=== PATIENT | male | born 1980 | race African-American/Black ===

== ENCOUNTER 2018-02-18 01:46 | Emergency (ER) | payer SELFPAY ==
[~2018-02-18] VITALS: Ht 170.2 cm; Wt 86.2 kg
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
[2018-02-18] MEDS ORDERED: MORPHINE SULFATE INJ 2 MG/ML DISP.SYRIN IM ONE (02:30)
--- NOTE | 2018-02-18 02:30 | NUR ---
XRAY AT BEDSIDE.
[2018-02-18] MEDS ORDERED: MORPHINE SULFATE INJ 4 MG/ML DISP.SYRIN ONE (02:32)
--- NOTE | 2018-02-18 03:00 | NUR ---
AT BEDSIDE, SPLINT PLACED ON R 5TH FINGER BY .
--- NOTE | 2018-02-18 03:28 | NUR ---
Patient discharged with family to home in stable condition. Written and verbal after care instructions given, patient instructed not to drive. Patient verbalizes understanding of instruction. Patient ambulatory with a steady gait. Patient is awake and alert to self, day, and place.
[2018-02-18 03:36] VITALS: BP 138/84
== END 2018-02-18 03:37 | disposition home or self-care (01) ==
LOC: ER 01:50
DX: S63.286A Dislocation of proximal interphalangeal joint of right little finger, initial encounter (principal); S20.211A Contusion of right front wall of thorax, initial encounter; S00.81XA Abrasion of other part of head, initial encounter; Z98.890 Other specified postprocedural states; V49.49XA Driver injured in collision with other motor vehicles in traffic accident, initial encounter; Y93.89 Activity, other specified; Y92.413 State road as the place of occurrence of the external cause; Y99.8 Other external cause status
CPT/HCPCS: 26770; 71045; 73130; 96372; 99284; A4606; A6402; J2270; Z7610